=== PATIENT | female | born 1995 | race Caucasian/White ===

== ENCOUNTER 2018-01-26 09:15 | Emergency (ER) | payer OTHER ==
[2018-01-26 09:31] VITALS: BP 120/87
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
[2018-01-26] MEDS ORDERED: Ibuprofen TAB* 600 MG PO ONE (11:11)
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
== END 2018-01-26 11:25 | disposition home or self-care (01) ==
LOC: UCEAST 09:15
DX: S16.1XXA Strain of muscle, fascia and tendon at neck level, initial encounter (principal); R51 Headache; V89.2XXA Person injured in unspecified motor-vehicle accident, traffic, initial encounter; Y92.9 Unspecified place or not applicable
CPT/HCPCS: 70450; 72125; 99202; A9270-GY; G0463

== ENCOUNTER → 2018-12-21 01:08 | Emergency (ER) | payer OTHER ==
[~2018-12-21 01:08] MED LIST: ALPRAZolam TAB* 0.5 MG PO ONE; LORazepam INJ* 2 MG/ML 1 ML VIAL IV PUSH ONE; LORazepam TAB(*) 1 MG PO ONE; Lorazepam PYXIS KEY ONE; NS 0.9% 1000 ML** 1,000 ML IV ONE
--- NOTE | 2018-12-21 01:39 | ED ---
Substance Abuse/Use - HPI Summary HPI Summary: This patient is a 23 year old F brought in by ambulance to [facility] with a chief complaint of substance abuse since 21:00. Consumption of 20 mg of THC edible, approximately 350 mg CBD oil, and half of a strawberry stefano. The patient reports that she thinks she is having a panic attack. She notes periods of intense clarity followed by periods of confusion. The patient rates the pain 0/ 10 in severity. Symptoms aggravated by nothing. Symptoms alleviated by nothing. Patient reports hallucinations and anxiety. Patient denies nausea or vomiting. The patient notes she had a panic attack 5 or 6 weeks ago. The patient has a hx of anxiety. The patient notes that she is not currently taking any anti-anxiety medications. - History Of Current Complaint Chief Complaint: EDSubstanceAbuse Stated Complaint: ANXIETY PER EMS Time Seen by Provider: 12/21/18 01:25 Hx Obtained From: Patient Onset/Duration of Drug/ETOH Abuse: Hours Ingestion History: Type/Name Of Drug - marijuana, EtOH Overdose Characteristics: Oral Severity Initially: Mild Severity Currently: Mild Character: Anxious Aggravating Factor(s): Nothing Alleviating Factor(s): Nothing Associated Signs And Symptoms: Hallucinating - Allergies/Home Medications Allergies/Adverse Reactions: Allergies Allergy/AdvReac Type Severity Reaction Status Date / Time No Known Allergies Allergy Verified 01/26/18 09:30 Home Medications: Home Medications NK [No Home Medications Reported] 12/21/18 [History Confirmed 12/21/18] PMH/Surg Hx/FS Hx/Imm Hx Opthamlomology History: Denies: Hx Legally Blind EENT History: Denies: Hx Deafness Psychiatric History: Reports: Hx Anxiety - Surgical History Surgery Procedure, Year, and Place: wisdom teeth extraction Infectious Disease History: No Infectious Disease History: Reports: Traveled Outside the [place] in Last 30 Days - Family History Known Family History: Negative: Blood Disorder - Social History Alcohol Use: Weekly Substance Use Type: Reports: None Smoking Status (MU): Never Smoked Tobacco Review of Systems Negative: Fever Negative: Epistaxis Negative: Cough Negative: Vomiting, Nausea Psychological: Other - confusion followed by intense clarity Positive: Anxious, Other - hallucinations All Other Systems Reviewed And Are Negative: Yes Physical Exam - Summary Physical Exam Summary: VITAL SIGNS: Reviewed. GENERAL: Patient is a well-developed and nourished FEMALE who is lying comfortable in the stretcher. Patient is not in any acute respiratory distress. HEAD AND FACE: No signs of trauma. No ecchymosis, hematomas or skull depressions. No sinus tenderness. EYES: PERRLA, EOMI x 2, No injected conjunctiva, no nystagmus. EARS: Hearing grossly intact. Ear canals and tympanic membranes are within normal limits. MOUTH: Oropharynx within normal limits. NECK: Supple, trachea is midline, no adenopathy, no JVD, no carotid bruit, no c- spine tenderness, neck with full ROM. CHEST: Symmetric, no tenderness at palpation LUNGS: Clear to auscultation bilaterally. No wheezing or crackles. CVS: Regular rhythm, tachycardia, S1 and S2 present, no murmurs or gallops appreciated. ABDOMEN: Soft, non-tender. No signs of distention. No rebound no guarding, and no masses palpated. Bowel sounds are normal. EXTREMITIES: FROM in all major joints, no edema, no cyanosis or clubbing. NEURO: Alert and oriented x 3. No acute neurological deficits. Speech is normal and follows commands. SKIN: Dry and warm PSYCH: anxious Triage Information Reviewed: Yes Vital Signs On Initial Exam: Initial Vitals Temp Pulse Resp BP Pulse Ox 99.8 F 140 20 139/78 100 12/21/18 01:14 12/21/18 01:14 12/21/18 01:14 12/21/18 01:14 12/21/18 01:14 Vital Signs Reviewed: Yes Diagnostics - Vital Signs Vital Signs Temp Pulse Resp BP Pulse Ox 12/21/18 01:14 99.8 F 140 20 139/78 100 - Laboratory Result Diagrams: 12/21/18 03:48 12/21/18 03:48 Lab Statement: Any lab studies that have been ordered have been reviewed, and results considered in the medical decision making process. - EKG 03:51 Cardiac Rate: Tachycardia - at 127 bpm EKG Rhythm: Sinus Tachycardia ST Segment: Normal Ectopy: None Summary of EKG Findings: sinus tachycardia at 127 bpm with nml axis, nml intervals, and no ischemic changes. Re-Evaluation - Re-Evaluation 1st re-eval Re-Evaluation Time: 03:27 Change: Unchanged Comment: still tachycardic up [id number] bpm even though she was given xanex Course/Dx - Course Course Of Treatment: This patient is a 23 year old F brought in by ambulance to [facility] with a chief complaint of substance abuse since 21:00. Consumption of 20 mg of THC edible, approximately 350 mg CBD oil, and half of a strawberry stefano. Patient reports hallucinations and anxiety. Upon re-evaluation at 03:27, pt was still tachycardic up [id number] bpm even though she was given xanax. Labs and UA obtained. In the ED course the patient was given Ativan, Xanax, and IV fluids. An EKG reveals sinus tachycardia at 127 bpm with nml axis, nml intervals, and no ischemic changes. This patient will be signed out from Dr. Britton to Dr. Gillis upon physician shift change pending sobriety. - Diagnoses Provider Diagnoses: Substance abuse, Anxiety Discharge - Sign-Out/Discharge Documenting (check all that apply): Sign-Out Patient - pending sobriety Signing out patient TO: Al Gillis Patient Received Moderate/Deep Sedation with Procedure: No - Discharge Plan Condition: Stable Referrals: No Primary Care Phys,NOPCP [Primary Care Provider] - - Attestation Statements Document Initiated by Scribe: Yes Documenting Scribe: Estelle Moreno Provider For Whom Scribe is Documenting (Include Credential): Edmundo Britton MD Scribe Attestation: IEstelle, scribed for Emdundo Britton MD on 12/21/18 at 0608. Status of Scribe Document: Ready
[2018-12-21 03:50] LABS: Urine Appearance Cloudy; Urine Bacteria 1+ (Absent); Urine Bilirubin Negative (Negative); Urine Blood 1+ (Negative); Urine Color Yellow; Urine Glucose Negative (Negative); Urine Ketones Negative (Negative); Urine Nitrite Negative (Negative); Urine Protein Negative (Negative); Urine Red Blood Cell 1+(3-5/hpf) (Absent); Urine Specific Gravity 1.024 (1.010-1.030); Urine Squamous Epithelial Cell Present (Absent); Urine Urobilinogen Negative (Negative); Urine White Blood Cell Absent (Absent)
[2018-12-21 03:56] LABS: ABS Basophils 0 10^3/ul (0-0.2); ABS Eosinophils 0 10^3/ul (0-0.6); ABS Monocytes 0.4 10^3/ul (0-0.8); ABS Nucleated RBC 0 10^3/ul; Eosinophil % 0.1 %; Hematocrit 40 % (33-41); Hemoglobin 13.6 g/dL (12.0-16.0); Lymphocyte % 12.2 %; Mean Corpuscular HGB Conc 34 g/dL (31-36); Mean Corpuscular Hemoglobin 32 pg (27-31); Mean Corpuscular Volume 92 fL (80-97); Mean Platelet Volume 7.9 fL (7.4-10.4); Nucleated Red Blood Cells % 0; Platelet Count 238 10^3/uL (150-450); Red Blood Count 4.29 10^6 /uL (3.70-4.87); Red Cell Distribution Width 13 % (10.5-15); White Blood Count 8.5 10^3/uL (3.5-10.8)
[2018-12-21 04:06] LABS: Urine Benzodiazepine Screen None Detected (None Detect); Urine Opiates Screen None Detected (None Detect)
[2018-12-21 04:12] LABS: ALT 10 U/L (7-52); AST 18 U/L (13-39); Albumin 4.4 g/dL (3.2-5.2); Albumin/Globulin Ratio 1.4 (1-3); Alkaline Phosphatase 72 U/L (34-104); Anion Gap 8 mmol/L (2-11); Blood Urea Nitrogen 17 mg/dL (6-24); CO2 Carbon Dioxide 21 mmol/L (22-32); Calcium 9.5 mg/dL (8.6-10.3); Chloride 106 mmol/L (101-111); EGFR African American 118.7 (>60); EGFR Non-African American 98.1 (>60); Globulin 3.1 g/dL (2-4); Glucose 117 mg/dL (70-100); Potassium 3.8 mmol/L (3.5-5.0); Sodium 135 mmol/L (135-145); Total Protein 7.5 g/dL (6.4-8.9)
[2018-12-21 04:19] LABS: HCG Pregnancy < 0.60 mIU/mL
[2018-12-21 04:30] LABS: Alcohol < 10 mg/dL (<10)
[2018-12-21 04:45] LABS: TSH (Thyroid Stimulating Horm) 1.76 mcIU/mL (0.34-5.60)
--- NOTE | 2018-12-21 07:06 | ED ---
Progress - Progress Note Progress Note: This patient is a sign-out from Dr. Britton to Dr. Gillis at 07:00 on 12/21/18 pending sobriety. Re-Evaluation - Re-Evaluation 1st re-eval Re-Evaluation Time: 08:00 Change: Unchanged Comment: The patient is awake and cleared for MHE. Second Eval Re-Evaluation Time: 10:43 Change: Unchanged Comment: Dr. Alfaro in pt's room. Third Eval Re-Evaluation Time: 11:05 Change: Improved Comment: The pt will be d/c'ed with a dx of anxiety, per Dr. Alfaro. Course/Dx - Course Course Of Treatment: This patient is a sign-out from Dr. Britton to Dr. Gillis at 07:00 on 12/21/18 pending sobriety. - Diagnoses Provider Diagnoses: Anxiety Discharge - Sign-Out/Discharge Documenting (check all that apply): Patient Departure, Receiving Sign-Out Receiving patient FROM: Edmundo Britton Patient Received Moderate/Deep Sedation with Procedure: No - Discharge Plan Condition: Stable Disposition: HOME Patient Education Materials: Mood Disorders (ED) Referrals: [facility] [Outside] - Billing Disposition and Condition Condition: STABLE Disposition: Home - Attestation Statements Document Initiated by Scribe: Yes Documenting Scribe: Nruy Nava Provider For Whom Jovi is Documenting (Include Credential): Al Gillis MD. Scribe Attestation: Nury Serrato, homeroed for Al Gillis MD. on 12/21/18 at 1736. Scribe Documentation Reviewed: Yes Provider Attestation: The documentation as recorded by the Nury ballesteros accurately reflects the service I personally performed and the decisions made by me, Al Gillis MD. Status of Scribe Document: Viewed
--- NOTE | 2018-12-21 11:28 | PN ---
ED Flex Patient Progress Note Date of Service: 12/21/18 CC " I ate edibles" The patient was brought to [facility] emergency department by her friend after eating a edible cannabis brownie last evening around 730pm and feeling paranoid and experienced a panic attack. She denied access to firearms or stockpiles of medications. She believed that everyone hated her and that she was going to get in trouble for using cannabis. She reported recent conflict with her roommates. She reported adequate sleep and appetite The patient denied suicidal and or homicidal ideation intent or plan. The patient denied auditory and/ or visual hallucinations. Her friend Francisco was at bedside and did not provide details that indicated any precipitating safety concerns. She looks forward to seeing her family. Psychiatric Review of Systems Bipolar Denied symptoms of mima such as having many ideas at once. Denied increased talkativeness where no one can interrupt. Denied feeling irritable most of the time while having an persistent abundance of energy most of the day without the use of energy drinks, stimulants, or recreational drug use. Denied an increase in intensity in goal directed activities. Denied having the decreased need to sleep for days , having prolonged elevated heighted mood , or feeling on top of the world. Denied impulsive risky sexual encounters. Denied spending money recklessly , going on spending sprees wiping out savings. Denied impulsively traveling out of town or country, having super roblero, and unrealistic wealth or fame. MDD Denied feeling depressed or having diminished interest in hobbies or interests which were present in the past , for most of the time, lasting more than 2 weeks. Denied having crying spells , feeling empty inside, feelings of hopelessness or worthless. Denied unintentional weight loss or appetite . Denied interruption of sleep or feeling tired throughout the day. Denied loss of energy or lack of motivation to complete tasks. Denied overwhelming feelings of guilt , or decreased concentration. Denied recurrent thoughts of . Denied feeling no purpose in life or would be better off . Anxiety Denied having symptoms of anxiety such as having times where heart feels that it is beating out of chest , sweaty palms, or shallow breathing. Denied having uncomfortable or intrusive thoughts. Denied feeling restless, high strung, or worrying too much most of the time. Psychosis Does not endorse hearing things that other people do not hear or seeing things other people do not see. Denied feeling that TV is making references. Denied feeling that people are spying , following , or reading their thoughts. Phobias: Patient denied having excessive fear of a particular thing or situation. Eating disorders: Patient denied having excessive eating habits or feelings of guilt after eating. Denied repeated episodes of self induced vomiting after eating. PTSD Denied flashbacks, nightmares and avoidance of a prior traumatic event. PAST PSYCHIATRIC HISTORY: Prior Diagnosis : No prior Dx History of past Psychiatric Hospitalizations: No prior psychiatric admission. History of past suicide/homicide attempts : Denied past suicide attempts. Denied past homicidal incidents. Outpatient follow-up: [facility] Medications: No past trials of medications FAMILY HISTORY: - Suicide: Denied family history of suicide. - Mental illness: Denied a history of mental health in immediate family members. - Substance abuse: Denied substance abuse among family members. SUBSTANCE ABUSE HISTORY: Denied using alcohol, tobacco, heroin and cocaine and other illicit substances. Denied abusing pills not prescribed . Denied past Substance abuse treatment. - EtOH: Denied using recently or in the past. - Tobacco: Denied using recently or in the past. - Cannabis: used 3 times in the past with the last time of use in June - Heroin: Denied using recently or in the past. - Cocaine: Denied using recently or in the past. 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 Single no children lives in [place] with 3 roommates. Studying Physical Therapy - Legal history: Denied - service history: Denied PAST MEDICAL HISTORY: Denied heart disease, diabetes, cancer and/ or other medical conditions. - Allergies: Denied drug or other allergies. Physical Exam: Please see ED note Mental Status Exam on Admission APPEARANCE : 23 year old female who appears stated age. Patient is not malodourous, and appears to have fair hygiene and grooming. BEHAVIOR: Cooperative , calm EYE CONTACT: Fair PSYCHOMOTOR ACTIVITY: No psychomotor agitation or retardation. MOVEMENTS: No abnormal movements observed. SPEECH : Normal rate, rhythm, volume and tone. MOOD : " okay " AFFECT : Constricted restricted THOUGHT PROCESS: formulated and organized in a logical, linear goal directed manner. No flight of ideas , loose associations , or circumstantiality. THOUGHT CONTENT: no delusions, preoccupations, obsessions, phobias or preoccupations. PERCEPTION: No current auditory or visual hallucinations. Doesnt appear to be responding to internal cues. No evidence of depersonalization , de-realization, or illusions SUICIDALITY Denied suicidal ideation, intent or plan. HOMICIDALITY Denied homicidal ideation, intent or plan. Insight/judgment: Fair insight and judgment ORIENTATION: Oriented to self, location, and time. Diagnosis on Admission: Substance induced anxiety disorder , Cannabis use disorder Assessment: 23 year old female with no prior psychiatric history of seen in the emergency department upon having a panic attack Plan # Patient can be discharged. She doesnt require psychiatric inpatient admission at this time. She doesnt present a threat of harm to herself and or others. # Plans to follow up at [facility] for therapy # She will return home with her friend Francisco who plans to look after her today, her family is planing to visit her today. # Offered substance abuse resources and declined. Risk factors: Age, single. Protective factors: Currently no suicidal ideation, intent or plan. No prior history of suicide attempt. Has strong support system. No history of service. Currently no feelings of hopelessness, not in an occupation of social isolation, doesnt have multiple medical conditions, no family history of suicide, doesnt have access to firearms. Doesnt have command hallucinations and or psychotic features at this time. No history of substance abuse. No history of alcohol abuse. No changes in relationship status, housing, job, or school. Currently future orientated. Patient and accompanying friend instructed to immediately call 911 should any safety concerns arise. Vital Signs Temp Pulse Resp BP Pulse Ox 98.5 F 119 20 137/80 100 12/21/18 08:21 12/21/18 08:13 12/21/18 10:18 12/21/18 08:13 12/21/18 08:13 Lab Results - Entire Visit 12/21/18 12/21/18 12/21/18 03:48 03:48 03:39 WBC 8.5 RBC 4.29 Hgb 13.6 Hct 40 MCV 92 MCH 32 H MCHC 34 RDW 13 Plt Count 238 MPV 7.9 Neut % (Auto) 82.0 Lymph % (Auto) 12.2 Conway % (Auto) 5.2 Eos % (Auto) 0.1 Baso % (Auto) 0.5 Absolute Neuts (auto) 7.0 Absolute Lymphs (auto) 1.0 Absolute Monos (auto) 0.4 Absolute Eos (auto) 0 Absolute Basos (auto) 0 Absolute Nucleated RBC 0 Nucleated RBC % 0 Sodium 135 Potassium 3.8 Chloride 106 Carbon Dioxide 21 L Anion Gap 8 BUN 17 Creatinine 0.74 Est GFR ( Amer) 118.7 Est GFR (Non-Af Amer) 98.1 BUN/Creatinine Ratio 23.0 H Glucose 117 H Calcium 9.5 Total Bilirubin 0.50 AST 18 ALT 10 Alkaline Phosphatase 72 Total Protein 7.5 Albumin 4.4 Globulin 3.1 Albumin/Globulin Ratio 1.4 TSH 1.76 Beta HCG, Quant < 0.60 Urine Color Urine Appearance Urine pH Ur Specific [place] Urine Protein Urine Ketones Urine Blood Urine Nitrate Urine Bilirubin Urine Urobilinogen Ur Leukocyte Esterase Urine WBC (Auto) Urine RBC (Auto) Ur Squamous Epith Cells Urine Bacteria Urine Glucose Urine Opiates Screen None detected Ur Barbiturates Screen None detected Ur Phencyclidine Scrn None detected Ur Amphetamines Screen None detected U Benzodiazepines Scrn None detected Urine Cocaine Screen None detected U Cannabinoids Screen Presumptive positive A Serum Alcohol < 10 12/21/18 03:39 WBC RBC Hgb Hct MCV MCH MCHC RDW Plt Count MPV Neut % (Auto) Lymph % (Auto) Conway % (Auto) Eos % (Auto) Baso % (Auto) Absolute Neuts (auto) Absolute Lymphs (auto) Absolute Monos (auto) Absolute Eos (auto) Absolute Basos (auto) Absolute Nucleated RBC Nucleated RBC % Sodium Potassium Chloride Carbon Dioxide Anion Gap BUN Creatinine Est GFR ( Amer) Est GFR (Non-Af Amer) BUN/Creatinine Ratio Glucose Calcium Total Bilirubin AST ALT Alkaline Phosphatase Total Protein Albumin Globulin Albumin/Globulin Ratio TSH Beta HCG, Quant Urine Color Yellow Urine Appearance Cloudy Urine pH 6.0 Ur Specific [place] 1.024 Urine Protein Negative Urine Ketones Negative Urine Blood 1+ A Urine Nitrate Negative Urine Bilirubin Negative Urine Urobilinogen Negative Ur Leukocyte Esterase Negative Urine WBC (Auto) Absent Urine RBC (Auto) 1+(3-5/hpf) A Ur Squamous Epith Cells Present A Urine Bacteria 1+ A Urine Glucose Negative Urine Opiates Screen Ur Barbiturates Screen Ur Phencyclidine Scrn Ur Amphetamines Screen U Benzodiazepines Scrn Urine Cocaine Screen U Cannabinoids Screen Serum Alcohol
[2018-12-21 11:51] VITALS: BP 133/86
== END | disposition home or self-care (01) ==
LOC: ED 01:08
DX: F41.9 Anxiety disorder, unspecified (principal); F19.10 Other psychoactive substance abuse, uncomplicated; R94.31 Abnormal electrocardiogram [ECG] [EKG]
CPT/HCPCS: 36415; 80053; 80307; 80320; 81003; 81015; 84443; 84702; 85025; 87086; 93005; 96361; 96374; 99285; A9270-GY; G0480; J2060